=== PATIENT | male | born 1980 | race Caucasian/White ===

== ENCOUNTER 2017-05-24 21:30 | Observation (INO) | payer OTHER ==
[2017-05-24] MEDS ORDERED: NS 1,000 ML IV ONE (21:46)
--- NOTE | 2017-05-24 21:46 | EDPHY ---
H & P Stated Complaint: CP, high BP Time Seen by Provider: 05/24/17 21:35 HPI/ROS: HPI CHIEF COMPLAINT: Chest pain HISTORY OF PRESENT ILLNESS: Patient is a 36-year-old male, he has a history of what he describes to me is LVH, additionally hypertension, he presents emergency room with chest pain. He states he has had intermittent chest pain over the last 12-14 hours. Last every 15 min he describes sharp stabbing pain it radiates across his chest states sometimes goes down his left arm. It is not associated with exertion. 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 He states he was last hospitalized in [place] for chest pain. He states that he thinks he had a normal stress test at that time. He decided come the emergency room as he has been having chest pain sharp stabbing every 15 min in his chest. It comes and goes. He denies nausea vomiting. Denies shortness of breath. Denies pleuritic pain. Denies hemoptysis. Denies fever or recent illness. He does travel extensively states on planes. Never had a history of DVT or PE. Patient does report to me that he smokes tobacco daily half a pack, additionally marijuana, he did binge drink alcohol this weekend. He denies any cocaine or methamphetamine. Past Medical History: Hypertension, LVH Past Surgical History: Denies surgical history Social History: Denies daily use of drugs. Use tobacco daily, marijuana, occasional alcohol use. Denies other illicit drugs. Family History: Noncontributory ROS REVIEW OF SYSTEMS: A comprehensive 10 point review of systems is otherwise negative aside from elements mentioned in the history of present illness. Exam Constitutional appears well nontoxic, slightly anxious, triage nursing summary reviewed, vital signs reviewed, awake/alert. Eyes normal conjunctivae and sclera, EOMI, PERRLA. HENT normal inspection, atraumatic, moist mucus membranes, no epistaxis, neck supple/ no meningismus, no raccoon eyes. Respiratory clear to auscultation bilaterally, normal breath sounds, no respiratory distress, no wheezing. Cardiovascular rate normal, regular rhythm, no murmur, no edema, distal pulses normal. Gastrointestinal soft, non-tender, no rebound, no guarding, normal bowel sounds, no distension, no pulsatile mass. Genitourinary no CVA tenderness. Musculoskeletal no midline vertebral tenderness, full range of motion, no calf swelling, no tenderness of extremities, no meningismus, good pulses, neurovascularly intact. Skin pink, warm, & dry, no rash, skin atraumatic. Neurologic awake, alert and oriented x 3, AAOx3, moves all 4 extremities equally, motor intact, sensory intact, CN II-XII intact, normal cerebellar, normal vision, normal speech. Psychiatric normal mood/affect. Heme/Lymph/Immune no lymphadenopathy. Differential diagnosis includes but is not limited to: ACS, atypical chest pain , pneumothorax, pneumonia, pulmonary embolism, aortic dissection, congestive heart failure, tumor, musculoskeletal pain, esophageal pain, GERD, peptic ulcer disease, pancreatitis Medical Decision Making: Plan for this patient IV establishment full classroom monitor obtain EKG, troponin, rule out acute coronary syndrome, GI cocktail to see if this improves his pain, IV Pepcid, chest x-ray, D-dimer, and re-evaluate. Re-evaluation: EKG interpretation by me on record in [employer] system. Impression time of EKG 03/28/2046, sinus rhythm LVH present. No ST elevation no ST depression no T- wave abnormalities unremarkable nonischemic EKG. 2318: Re-evaluation patient still having intermittent chest pain. Full-dose aspirin has been given. He had no improvement GI cocktail or IV Pepcid. His workup so far in emergency room is unremarkable for acute coronary syndrome he has a nonischemic EKG. Chest x-ray unremarkable. Negative D-dimer negative troponin. 2327: Spoke with Dr. Cavanaugh, who agrees to admit this patient for chest pain. Repeat Ekg: Time of repeat EKG 2323, sinus rhythm rate of [address] elevation no ST depression. No significant T-wave abnormalities. No signs of ischemia. Source: Patient - Personal History Current Tetanus/Diphtheria Vaccine: Yes - Medical/Surgical History Hx Asthma: No Hx Chronic Respiratory Disease: No Hx Diabetes: No Hx Cardiac Disease: No Hx Renal Disease: No Hx Cirrhosis: No Hx Alcoholism: No Hx HIV/AIDS: No Hx Splenectomy or Spleen Trauma: No Other PMH: HTN, - Social History Smoking Status: Current every day smoker Constitutional: Initial Vital Signs Temperature (C) 36.4 C 05/24/17 21:32 Heart Rate 91 05/24/17 21:32 Respiratory Rate 18 05/24/17 21:32 Blood Pressure 133/93 H 05/24/17 21:32 O2 Sat (%) 94 05/24/17 21:32 O2 Delivery Mode Room Air Allergies/Adverse Reactions: No Known Allergies Allergy (Unverified 05/24/17 21:35) Home Medications: Medication Instructions Recorded LaMICtal 05/24/17 Lisinopril 05/24/17 Seroquel 05/24/17 Medical Decision Making - Diagnostics Imaging Results: Imaging Impressions Chest X-Ray 05/24/17 21:48 Impression: 1. Poor inspiration with mild compressive changes at the lung bases. - Data Points Laboratory Results: Laboratory Results 05/24/17 21:51 05/24/17 21:51 05/24/17 05/24/17 05/24/17 22:32 21:51 21:51 WBC RBC Hgb Hct MCV MCH MCHC RDW Plt Count MPV Neut % (Auto) Lymph % (Auto) [place] % (Auto) Eos % (Auto) Baso % (Auto) Nucleat RBC Rel Count Absolute Neuts (auto) Absolute Lymphs (auto) Absolute Monos (auto) Absolute Eos (auto) Absolute Basos (auto) Absolute Nucleated RBC Immature Gran % Immature Gran # PT 12.5 SEC SEC (12.0-15.0) INR 0.91 (0.83-1.16) APTT 26.9 SEC SEC (23.0-38.0) D-Dimer 0.37 ug/mLFEU ug/mLFEU (0.00-0.50) Sodium 143 mEq/L mEq/L (135-145) Potassium 4.4 mEq/L mEq/L (3.5-5.2) Chloride 107 mEq/L mEq/L (97-110) Carbon Dioxide 27 mEq/l mEq/l (22-31) Anion Gap 9 mEq/L mEq/L (8-16) BUN 16 mg/dL mg/dL (7-23) Creatinine 0.7 mg/dL mg/dL (0.7-1.3) Estimated GFR > 60 Glucose 98 mg/dL mg/dL (70-100) Calcium 9.3 mg/dL mg/dL (8.5-10.4) Magnesium 2.0 mg/dL mg/dL (1.6-2.3) Total Bilirubin 0.6 mg/dL mg/dL (0.1-1.4) Conjugated Bilirubin 0.4 mg/dL mg/dL (0.0-0.5) Unconjugated Bilirubin 0.2 mg/dL mg/dL (0.0-1.1) AST 29 IU/L IU/L (17-59) ALT 38 IU/L IU/L (21-72) Alkaline Phosphatase 72 IU/L IU/L (38-126) Creatine Kinase 296 IU/L H IU/L (0-224) CK-MB (CK-2) Fraction 5.81 ng/mL H ng/mL (0.00-3.19) CK-MB (CK-2) % 2.0 % % (0.0-4.0) Creatine Kinase Interp NEGATIVE (NEGATIVE) Troponin I < 0.012 ng/mL ng/mL (0.000-0.034) NT-Pro-B Natriuret Pep 42 pg/mL pg/mL (0-125) Total Protein 7.4 g/dL g/dL (6.3-8.2) Albumin 4.1 g/dL g/dL (3.5-5.0) Lipase 117 IU/L IU/L (23-300) Urine Opiates Screen NEGATIVE (NEGATIVE) Urine Barbiturates NEGATIVE (NEGATIVE) Ur Phencyclidine Scrn NEGATIVE (NEGATIVE) Ur Amphetamine Screen NEGATIVE (NEGATIVE) U Benzodiazepines Scrn NEGATIVE (NEGATIVE) Urine Cocaine Screen NEGATIVE (NEGATIVE) U Marijuana (THC) Screen NEGATIVE (NEGATIVE) 05/24/17 21:51 WBC 8.36 10^3/uL 10^3/uL (3.80-9.50) RBC 4.74 10^6/uL 10^6/uL (4.40-6.38) Hgb 14.4 g/dL g/dL (13.7-17.5) Hct 42.9 % % (40.0-51.0) MCV 90.5 fL fL (81.5-99.8) MCH 30.4 pg pg (27.9-34.1) MCHC 33.6 g/dL g/dL (32.4-36.7) RDW 12.8 % % (11.5-15.2) Plt Count 239 10^3/uL 10^3/uL (150-400) MPV 11.0 fL fL (8.7-11.7) Neut % (Auto) 60.5 % % (39.3-74.2) Lymph % (Auto) 27.4 % % (15.0-45.0) [place] % (Auto) 6.7 % % (4.5-13.0) Eos % (Auto) 4.1 % % (0.6-7.6) Baso % (Auto) 1.1 % % (0.3-1.7) Nucleat RBC Rel Count 0.0 % % (0.0-0.2) Absolute Neuts (auto) 5.06 10^3/uL 10^3/uL (1.70-6.50) Absolute Lymphs (auto) 2.29 10^3/uL 10^3/uL (1.00-3.00) Absolute Monos (auto) 0.56 10^3/uL 10^3/uL (0.30-0.80) Absolute Eos (auto) 0.34 10^3/uL 10^3/uL (0.03-0.40) Absolute Basos (auto) 0.09 10^3/uL 10^3/uL (0.02-0.10) Absolute Nucleated RBC 0.00 10^3/uL 10^3/uL (0-0.01) Immature Gran % 0.2 % % (0.0-1.1) Immature Gran # 0.02 10^3/uL 10^3/uL (0.00-0.10) PT INR APTT D-Dimer Sodium Potassium Chloride Carbon Dioxide Anion Gap BUN Creatinine Estimated GFR Glucose Calcium Magnesium Total Bilirubin Conjugated Bilirubin Unconjugated Bilirubin AST ALT Alkaline Phosphatase Creatine Kinase CK-MB (CK-2) Fraction CK-MB (CK-2) % Creatine Kinase Interp Troponin I NT-Pro-B Natriuret Pep Total Protein Albumin Lipase Urine Opiates Screen Urine Barbiturates Ur Phencyclidine Scrn Ur Amphetamine Screen U Benzodiazepines Scrn Urine Cocaine Screen U Marijuana (THC) Screen Medications Given: Discontinued Medications Al Hydroxide/Mg Hydroxide (Maalox Susp) 30 ml PO ONCE ONE Stop: 05/24/17 22:02 Last Admin: 05/24/17 22:12 Dose: 30 ml Aspirin (Aspirin) 325 mg PO EDNOW ONE Stop: 05/24/17 23:22 Last Admin: 05/24/17 23:22 Dose: 325 mg Aspirin Buffered (Aspirin Ec) 325 mg PO EDNOW ONE Stop: 05/24/17 23:19 Last Admin: 05/24/17 23:22 Dose: Not Given Famotidine (Pepcid) 20 mg IVP EDNOW ONE Stop: 05/24/17 22:01 Last Admin: 05/24/17 22:13 Dose: 20 mg Hyoscyamine Sulfate (Levsin, Hyomax-Sl) 0.25 mg PO ONCE ONE Stop: 05/24/17 22:02 Last Admin: 05/24/17 22:12 Dose: 0.25 mg Sodium Chloride (Ns) 1,000 mls @ 0 mls/hr IV EDNOW ONE; Wide Open PRN Reason: Protocol Stop: 05/24/17 21:47 Last Admin: 05/24/17 22:12 Dose: 1,000 mls Lidocaine (Lidocaine 2% Viscous) 15 ml PO ONCE ONE Stop: 05/24/17 22:02 Last Admin: 05/24/17 22:12 Dose: 15 ml Departure - Departure Disposition: [facility] Inpatient Acute Clinical Impression: Chest pain Qualifiers: Chest pain type: unspecified Qualified Code(s): R07.9 - Chest pain, unspecified Condition: Fair Referrals: NONE *PRIMARY CARE P,. [Primary Care Provider] - As per Instructions
--- NOTE | 2017-05-24 21:49 | CPEKG ---
Heart Rate: 81 RR Interval: 741 P-R Interval: 148 QRSD Interval: 98 QT Interval: 408 QTC Interval: 474 P [place]: 26 QRS Independence: 39 T Wave Independence: 12 EKG Severity - ABNORMAL ECG - EKG Impression: SINUS RHYTHM EKG Impression: LEFT VENTRICULAR HYPERTROPHY Electronically Signed By: Marilee Toussaint 24-May-2017 22:02:49
[2017-05-24 21:59] LABS: PLATELET COUNT 239 10^3/uL (150-400)
[2017-05-24] MEDS ORDERED: FAMOTIDINE 20 MG/2 ML SDV IVP ONE (22:00)
[2017-05-24] MEDS ORDERED: HYOSCYAMINE SULFATE 0.125 MG TAB PO ONE (22:01)
[2017-05-24] MEDS ORDERED: MAG HYDROX/AL HYDROX/SIMETH 30 ML UDCUP PO ONE (22:01)
[2017-05-24] MEDS ORDERED: LIDOCAINE 2% VISCOUS 15 ML UDCUP PO ONE (22:01)
[2017-05-24 22:09] LABS: INR 0.91 (0.83-1.16); PROTIME(PATIENT) 12.5 SEC (12.0-15.0)
[2017-05-24 22:12] LABS: CREATINE KINASE 296 IU/L (0-224)
[2017-05-24] MEDS ORDERED: ASPIRIN EC 325 MG TAB PO ONE (23:18)
[2017-05-24] MEDS ORDERED: ASPIRIN 325 MG TAB ONE (23:19)
[2017-05-24] MEDS ORDERED: ASPIRIN 325 MG TAB PO ONE (23:21)
--- NOTE | 2017-05-24 23:26 | CPEKG ---
Heart Rate: 82 RR Interval: 732 P-R Interval: 152 QRSD Interval: 92 QT Interval: 396 QTC Interval: 463 P [place]: 30 QRS [place]: 25 T Wave [place]: 17 EKG Severity - ABNORMAL ECG - EKG Impression: SINUS RHYTHM EKG Impression: CONSIDER LEFT VENTRICULAR HYPERTROPHY Electronically Signed By: Gurmeet Heart 25-May-2017 07:22:14
[2017-05-24] MEDS ORDERED: ACETAMINOPHEN 325 MG TAB PO PRN (23:28)
[2017-05-24] MEDS ORDERED: ONDANSETRON 4 MG/2 ML VIAL IVP PRN (23:28)
[2017-05-24] MEDS ORDERED: ONDANSETRON DISINTEGRATING 4 MG TAB PO PRN (23:28)
--- NOTE | 2017-05-24 23:57 | PDGENHP ---
History and Physical - Chief Complaint Chest pain - History of Present Illness 36 yo M w/ HTN and PTSD presents with chest pain. Patient states he has been having central chest pain several times a week for about a month. He describes severe, stabbing, central chest pain that is not related to exertion or rest. He takes ibuprofen 800 mg at home for this with minimal relief. He states that he had a stress test in [place] last year that was negative for similar symptoms. Of note, he smokes ~1 PPD and his sister had an IN at age 32. History Information - Allergies/Home Medication List Allergies/Adverse Reactions: No Known Allergies Allergy (Unverified 05/24/17 21:35) Home Medications: LaMICtal 05/24/17 [Last Taken Unknown] Lisinopril 05/24/17 [Last Taken Unknown] Seroquel 05/24/17 [Last Taken Unknown] I have personally reviewed and updated: family history, medical history - Past Medical History hypertension Additional medical history: PTSD - Surgical History Additional surgical history: RLE surgery after trauma - Family History Positive for: CAD (Sister had IN at age 32) - Social History Smoking Status: Current every day smoker Review of Systems Review of Systems: ROS: 10pt was reviewed & negative except for what was stated in HPI & below Physical Exam Physical Exam: Temp Pulse Resp BP Pulse Ox 36.8 C 84 16 145/91 H 95 05/24/17 23:23 05/24/17 23:23 05/24/17 23:23 05/24/17 23:23 05/24/17 23:23 Constitutional: appears nourished, uncomfortable Eyes: PERRL, EOMI Ears, Nose, Mouth, Throat: moist mucous membranes, no oral mucosal ulcers Cardiovascular: regular rate and rhythym, no murmur, rub, or gallop, other ( Sternum is mildly tender to palpation) Respiratory: no respiratory distress, clear to auscultation Gastrointestinal: normoactive bowel sounds, soft, non-tender abdomen Skin: warm, normal color Neurologic: AAOx3, CN II-XII Intact Psychiatric: interacting appropriately, not anxious Lab Data & Imaging Review 05/24/17 21:51 05/24/17 21:51 WBC 8.36 10^3/uL (3.80-9.50) 05/24/17 21:51 RBC 4.74 10^6/uL (4.40-6.38) 05/24/17 21:51 Hgb 14.4 g/dL (13.7-17.5) 05/24/17 21:51 Hct 42.9 % (40.0-51.0) 05/24/17 21:51 MCV 90.5 fL (81.5-99.8) 05/24/17 21:51 MCH 30.4 pg (27.9-34.1) 05/24/17 21:51 MCHC 33.6 g/dL (32.4-36.7) 05/24/17 21:51 RDW 12.8 % (11.5-15.2) 05/24/17 21:51 Plt Count 239 10^3/uL (150-400) 05/24/17 21:51 MPV 11.0 fL (8.7-11.7) 05/24/17 21:51 Neut % (Auto) 60.5 % (39.3-74.2) 05/24/17 21:51 Lymph % (Auto) 27.4 % (15.0-45.0) 05/24/17 21:51 [place] % (Auto) 6.7 % (4.5-13.0) 05/24/17 21:51 Eos % (Auto) 4.1 % (0.6-7.6) 05/24/17 21:51 Baso % (Auto) 1.1 % (0.3-1.7) 05/24/17 21:51 Nucleat RBC Rel Count 0.0 % (0.0-0.2) 05/24/17 21:51 Absolute Neuts (auto) 5.06 10^3/uL (1.70-6.50) 05/24/17 21:51 Absolute Lymphs (auto) 2.29 10^3/uL (1.00-3.00) 05/24/17 21:51 Absolute Monos (auto) 0.56 10^3/uL (0.30-0.80) 05/24/17 21:51 Absolute Eos (auto) 0.34 10^3/uL (0.03-0.40) 05/24/17 21:51 Absolute Basos (auto) 0.09 10^3/uL (0.02-0.10) 05/24/17 21:51 Absolute Nucleated RBC 0.00 10^3/uL (0-0.01) 05/24/17 21:51 Immature Gran % 0.2 % (0.0-1.1) 05/24/17 21:51 Immature Gran # 0.02 10^3/uL (0.00-0.10) 05/24/17 21:51 PT 12.5 SEC (12.0-15.0) 05/24/17 21:51 INR 0.91 (0.83-1.16) 05/24/17 21:51 APTT 26.9 SEC (23.0-38.0) 05/24/17 21:51 D-Dimer 0.37 ug/mLFEU (0.00-0.50) 05/24/17 21:51 Sodium 143 mEq/L (135-145) 05/24/17 21:51 Potassium 4.4 mEq/L (3.5-5.2) 05/24/17 21:51 Chloride 107 mEq/L (97-110) 05/24/17 21:51 Carbon Dioxide 27 mEq/l (22-31) 05/24/17 21:51 Anion Gap 9 mEq/L (8-16) 05/24/17 21:51 BUN 16 mg/dL (7-23) 05/24/17 21:51 Creatinine 0.7 mg/dL (0.7-1.3) 05/24/17 21:51 Estimated GFR > 60 05/24/17 21:51 Glucose 98 mg/dL (70-100) 05/24/17 21:51 Calcium 9.3 mg/dL (8.5-10.4) 05/24/17 21:51 Magnesium 2.0 mg/dL (1.6-2.3) 05/24/17 21:51 Total Bilirubin 0.6 mg/dL (0.1-1.4) 05/24/17 21:51 Conjugated Bilirubin 0.4 mg/dL (0.0-0.5) 05/24/17 21:51 Unconjugated Bilirubin 0.2 mg/dL (0.0-1.1) 05/24/17 21:51 AST 29 IU/L (17-59) 03/18/18 21:51 ALT 38 IU/L (21-72) 05/24/17 21:51 Alkaline Phosphatase 72 IU/L (38-126) 05/24/17 21:51 Creatine Kinase 296 IU/L (0-224) H 05/24/17 21:51 CK-MB (CK-2) Fraction 5.81 ng/mL (0.00-3.19) H 05/24/17 21:51 CK-MB (CK-2) % 2.0 % (0.0-4.0) 05/24/17 21:51 Creatine Kinase Interp NEGATIVE (NEGATIVE) 05/24/17 21:51 Troponin I < 0.012 ng/mL (0.000-0.034) 05/24/17 21:51 NT-Pro-B Natriuret Pep 42 pg/mL (0-125) 05/24/17 21:51 Total Protein 7.4 g/dL (6.3-8.2) 05/24/17 21:51 Albumin 4.1 g/dL (3.5-5.0) 05/24/17 21:51 Lipase 117 IU/L (23-300) 05/24/17 21:51 Urine Opiates Screen NEGATIVE (NEGATIVE) 05/24/17 22:32 Urine Barbiturates NEGATIVE (NEGATIVE) 05/24/17 22:32 Ur Phencyclidine Scrn NEGATIVE (NEGATIVE) 05/24/17 22:32 Ur Amphetamine Screen NEGATIVE (NEGATIVE) 05/24/17 22:32 U Benzodiazepines Scrn NEGATIVE (NEGATIVE) 05/24/17 22:32 Urine Cocaine Screen NEGATIVE (NEGATIVE) 05/24/17 22:32 U Marijuana (THC) Screen NEGATIVE (NEGATIVE) 05/24/17 22:32 Imaging Review: Imaging Impressions Chest X-Ray 05/24/17 21:48 Impression: 1. Poor inspiration with mild compressive changes at the lung bases. Visualized and Interpreted Chest x-ray results: Yes Chest X-Ray results: no infiltrate Visualized and Interpreted EKG results: Yes EKG Interpretation: Positive for: normal sinsus rhythm Assessment & Plan Assessment: 36 yo M w/ HTN and PTSD presents with chest pain. Plan: 1. Chest pain - Central, severe, present several times a week for 9 months. Patient is active smoker with 15 pack yr hx and his sister had an IN at age 32. He reports he had a stress test last year in [place] that was normal. ECG on admission without ischemia, troponin and D-dimer negative. His CXR is unremarkable. - Admit to PCU for observation - Monitor on telemetry, trend cardiac enzymes - Will further evaluate chest wall with CT Chest - Nuclear stress test ordered for the morning (cannot walk on treadmill due to RLE injury) 2. HTN - On lisinopril as outpatient 3. PTSD - On Seroquel and Lamictal. Diet - NPO @ MA Code - Full Ppx - Low risk Dispo - Admit to PCU under observation status
[2017-05-25] MEDS ORDERED: IOPAMIDOL (ISOVUE 370) 100 ML BTL IV ONE (00:42)
[2017-05-25 03:59] LABS: PLATELET COUNT 219 10^3/uL (150-400)
[2017-05-25] MEDS ORDERED: QUEtiapine FUMARATE 50 MG TAB PO SCH (09:00)
[2017-05-25] MEDS ORDERED: NICOTINE 7 MG/24 HR PATCH TD SCH (09:00)
[2017-05-25] MEDS ORDERED: REGADENOSON 0.4 MG/5 ML SYR IVP ONE (09:49)
[2017-05-25] MEDS ORDERED: NICOTINE 21 MG/24 HR PATCH TD SCH (12:15)
[2017-05-25] MEDS: lamoTRIgine 25 MG TAB PO SCH ×2 (12:46→18:18)
--- NOTE | 2017-05-25 13:37 | ASMTCMCOM ---
CM Note CM Note Notes: 05/25/2017 Case Management Note Met pt during rounds this morning. Pt was admitted for chest pain. There are no case management d/c needs identified d/t pt age, employment status and activity levels prior to admission. Pt lives in [place] and is staying in a hotel here in [place]. Case Management d/c poc: anticipating independent with follow up as directed. Case Management available if d/c needs change. Date Signed: 05/25/2017 01:37 PM Electronically Signed By:Anabela Schultz RN
--- NOTE | 2017-05-25 14:27 | CPR ---
[f rep st] NONINVASIVE CARDIAC PROCEDURE REPORT DATE OF PROCEDURE: 05/25/2017 PROCEDURE: Lexiscan nuclear stress test. INDICATION: The patient is a 36-year-old male who presented to the hospital complaining of sharp solange st pain which lasted for approximately 10 minutes. He has a history of hypertension, ongoing tobacco use and family history of premature coronary artery disease. He states his sister had a myocardial infarction in her late 30s. PROCEDURE IN DETAIL: The patient was unable to walk on a treadmill secondary to knee pain. He had a Lexiscan infusion. His resting EKG revealed normal sinus rhythm with a heart rate of 60 beats per m inute and voltage consistent with left ventricular hypertrophy. Consent was obtained prior to the pr ocedure. The patient was infused with Lexiscan and complained of nausea and flushing. He remained i n normal sinus rhythm but his heart rate did increase from the 60s into the 90s. His blood pressure at rest was 150/90 and remained stable throughout study. The patient was given caffeine in the recov adela phase with an improvement in his symptoms. PLAN: Await nuclear images. /[id number]/MODL
--- NOTE | 2017-05-25 14:52 | ECHO ---
[email or web address] [address] [address] Main: [phone] Fax: Transthoracic Echocardiogram Name: JAYA GAMEZ MR#: [id number] Study Date: 05/25/2017 Study Time: 01:36 PM Date of : 1980 Age: 36 year(s) Height: 182.9 cm (72 in.) Weight: 112.95 kg (249 lb.) BSA: 2.34 m2 Gender: Male Examination: Echo Indication: Eval new cardiomyopathy 145 Image Quality: Contrast: Requested by: Darrell Salcedo BP: 145 mmHg/92 mmHg Heart Rate: Rhythm: Indication: Eval new cardiomyopathy Procedure Staff Regional Liaison: Jacki Wills RDCS Reading Physician: Rasheed Ratliff MD Requesting Provider: Conclusions: Normal size left ventricle. No LV hypertrophy. Normal global systolic LV function. The ejection fraction is estimated to be 60-65 %. Normal size right ventricle. Normal RV function. The left atrium is mildly dilated. The right atrium is normal in size. The IVC is normal sized. Measurements: Chambers Valvular Assessment AV/MV Valvular Assessment TV/PV Normal Normal Normal Name Value Range Name Value Range Name Value Range Ao Sylvia (MM): 3.6 cm (2.2 cm-3.7 AV meanP mmHg ( - ) cm) MV E Vmax: 0.71 m/s ( - ) IVSd (2D): 1.0 cm (0.6 cm-1.1 MV A Vmax: 0.49 m/s ( - ) cm) MV E/A: 1.45 ( - ) LVDd (2D): 5.1 cm (4.2 cm-5.9 cm) LVDs (2D): 3.8 cm (2.1 cm-4 cm) LVPWd (2D): 0.7 cm (0.6 cm-1 cm) LVEF (MOD4): 63 % (>=55 %) EF Range: 60-65 % Continued Measurements: Chambers Valvular Assessment AV/MV Patient: JAYA GAMEZ Study Date: 05/25/2017 Page 1 of 2 01:36 PM Name Value Name Value LADs: 4.6 cm MV E/E' Septal: 9.10 LADs Lon.1 cm MV E/E' Lateral: 8.90 LA Area: 26.5 cm2 TAPSE: 2.5 cm Additional Vessels Name Value Ao Ascendin.3 cm Findings: Left Ventricle: Normal size left ventricle. No LV hypertrophy. Normal global systolic LV function. The ejection fraction is estimated to be 60-65 %. No regional wall motion abnormality. Right Ventricle: Normal size right ventricle. Normal RV function. Left Atrium: The left atrium is mildly dilated. Right Atrium: The right atrium is normal in size. Mitral Valve: The mitral valve is normal in appearance and function. Mild mitral valve regurgitation is present. Aortic Valve: The aortic valve is normal in appearance and function. Tricuspid Valve: The tricuspid valve is normal in appearance and function. Trivial tricuspid valve regurgitation. Pulmonic Valve: The pulmonic valve is normal in appearance and function. Aorta: The aorta is normal. IVC: The IVC is normal sized. Pericardium: No pericardial effusion. (No Signature Object) Patient: JAYA GAMEZ Study Date: 05/25/2017 Page 2 of 2 01:36 PM [id number]
[2017-05-25] MEDS ORDERED: CALCIUM CARBONATE 500 MG CHEWABLE TAB PO PRN (15:01)
[2017-05-25] MEDS ORDERED: PANTOPRAZOLE SODIUM 40 MG TAB PO SCH (15:15)
[2017-05-25 15:41] VITALS: BP 152/99; PULSE 88; RESP 13; TEMP 98; O2SAT 94
--- NOTE | 2017-05-25 16:48 | ASMTLACE ---
LACE Length of stay for Answers: Less than 1 day current admission Acuity / Level of Answers: No Care: Did the patient have an inpatient admission? Comorbidities - select Answers: Other Notes: HTN all that apply Social determinants Answers: History of substance abuse (ETOH, street drugs, prescription drugs, etc.) History of trauma (PTSD, child abuse, domestic violence, etc.) Score: 7 Date Signed: 05/25/2017 04:47 PM Electronically Signed By:Anabela Schultz RN
--- NOTE | 2017-05-25 17:46 | PDDCSUM ---
Discharge Summary Discharge Summary: DISCHARGE SUMMARY FOLLOW-UP ITEMS: Reassess atypical chest pain as an outpatient DATE OF ADMISSION: 05/24/2017 DATE OF DISCHARGE: 05/25/2017 DISCHARGE DIAGNOSES: 1. Acute chest pain 2. Suspected esophagitis 3. Acute atelectasis CONSULTATIONS: None PROCEDURES / IMAGING: Nuclear medicine stress test demonstrating no inducible ischemia, possibly reduced ejection fraction Echocardiogram demonstrated normal ejection fraction, no focal wall motion abnormalities CHIEF COMPLAINT: Acute chest pain SUBJECTIVE: Patient continues to experience left-sided chest discomfort PHYSICAL EXAM ON DISCHARGE: Systolic blood pressure is 130, heart rate 70, afebrile overnight, satting well on room air, alert awake oriented x3, lungs are clear to auscultation bilaterally, heart rhythm is regular with no murmurs rubs or gallops, chest tenderness over the left anterior pectoralis muscle, full range of motion of the left shoulder without any inducible pain, abdomen is soft, mildly tender to moderate palpation, there is some sutures exposed in the scabs on the right lower extremity, without any surrounding erythema LABS ON DISCHARGE: D-dimer negative, troponin negative x2, liver panel unremarkable, tox screen negative, white blood cell count 6700, hemoglobin 13.8 HOSPITAL COURSE BY PROBLEM: The patient presented with acute chest pain and was ruled out for acute coronary syndrome with negative troponin x2, no ischemic changes on EKG, ruled out for obstructive coronary disease with a normal nuclear medicine stress test demonstrating no inducible ischemia. He was ruled out for pulmonary embolism with a negative D-dimer, ruled out for pulmonary infection with a normal chest CT. His nuclear medicine stress test miscalculated his ejection fraction, and he had a normal ejection fraction on echocardiogram. This was confirmed with our appeals officer. The etiology of the patient's chest discomfort is somewhat unclear, but I suspect the patient may have some nonsteroidal anti- inflammatory medication induced esophagitis, given that he has been taking NSAIDs fairly consistently for quite some time. Consequently, I recommended that he initiate a proton pump inhibitor and acute daily for the next month, utilizing as needed H2 marah and times for any ongoing chest discomfort. I recommended that he utilize Tylenol with his ibuprofen for pain control, primarily of his right lower extremity in which he continues to experience some discomfort status post a traumatic injury. The patient has some degree of atelectasis secondary to immobility since his presentation, and I recommended increasing his activity level. The patient has some sutures which have inappropriately remained in place since a traumatic injury 8 months ago, and we attempted to remove them with tweezers prior to discharge. For any sutures which were unable to be removed, we recommend that he follow up with his primary care provider and have them reassessed. DISCHARGE MEDICATIONS: Please see official discharge medication reconciliation sheet in chart , continue home medications with the addition of pantoprazole 40 mg daily, ranitidine 150 mg twice daily as needed, Tums as needed, Tylenol as needed. DISCHARGE INSTRUCTIONS: Please follow up with primary care provider upon returning to [place].
== END 2017-05-25 19:48 | disposition home or self-care (01) ==
LOC: F2W 05-25 01:13
PROVIDERS: ADMIT Student in an Organized Health Care Education/Training Program; ATTEND Internal Medicine
DX: R07.9 Chest pain, unspecified (principal); J98.11 Atelectasis; E86.9 Volume depletion, unspecified; I51.7 Cardiomegaly; I10 Essential (primary) hypertension; F17.210 Nicotine dependence, cigarettes, uncomplicated; F43.10 Post-traumatic stress disorder, unspecified; Z82.49 Family history of ischemic heart disease and other diseases of the circulatory system
CPT/HCPCS: 71045; 71260; 78452; 93005; 93017; 93306; A9500; G0378; 80305; 96374; J2270; J2785; Q9967

== ENCOUNTER 2017-05-28 07:36 | Emergency (ER) | payer OTHER ==
--- NOTE | 2017-05-28 07:59 | CPEKG ---
Heart Rate: 92 RR Interval: 652 P-R Interval: 152 QRSD Interval: 100 QT Interval: 372 QTC Interval: 461 P [place]: 27 QRS [place]: 33 T Wave [place]: 14 EKG Severity - NORMAL ECG - EKG Impression: SINUS RHYTHM Electronically Signed By: Anival Fall 28-May-2017 08:30:42
--- NOTE | 2017-05-28 08:50 | EDPHY ---
H & P Smoking Status: Current every day smoker Time Seen by Provider: 05/28/17 08:38 HPI/ROS: CHIEF COMPLAINT: Chest pain HISTORY OF PRESENT ILLNESS: Patient had hospital admission 05/24/17 for chest pain and had negative stress test as well as negative D-dimer. Normal chest CT. He was discharged with PPI for probable esophagitis. At 1:45 a.m. Today he awakened with sharp shooting chest pains in his left side of his chest which are identical to when he was hospitalized for this past weekend. He also said his PTSD is worse and tells me that his other reason he is here is that he feels that his feelings of wanting to harm himself are greater. He denies actual suicidal ideation or plan. Chest pain is not associated with diaphoresis or cough or fever or leg swelling or leg pain or hemoptysis. Symptoms mild. REVIEW OF SYSTEMS: Eye: no change in vision ENT: no sore throat Cardiac: HPI Pulmonary: no cough or SOB Abdomen: no vomiting, diarrhea, abdominal pain Musculoskeletal: no back pain Skin: no rash Neuro: no headache Constitutional: no fever : no urinary symptoms A comprehensive 10 point review of systems is otherwise negative aside from elements mentioned in the history of present illness. PAST MEDICAL HISTORY: PTSD, hypertension, Achilles repair Tobacco smoker and marijuana edibles Social history: Denies methamphetamine or alcohol today. Former [employer] General Appearance: Alert and conversant, cooperative. Eyes: No scleral icterus. ENT, Mouth: Normal mucous membranes. Respiratory: Normal respiratory effort, breath sounds equal, lungs are clear to auscultation. No rales or wheezing or rhonchi Cardiovascular: Regular rate and rhythm. Gastrointestinal: Abdomen is soft and non tender. Neurological: Alert, face symmetric, normal motor and sensory in extremities. Skin: Warm and dry, no rashes. Musculoskeletal: No peripheral edema. Psychiatric: Patient states"I feel like I am going to harm someone or myself." Intermittently tearful. Not hallucinating. Emergency Department course/MDM: 12-lead EKG interpreted by me; official reading is in trace master. My interpretation is sinus rhythm rate 92 with no ischemic changes, normal. I think acute coronary syndrome or pulmonary embolism would be unlikely. He does appear to require mental health evaluation. 1200: Placed on a mental health hold by myself for suicidal ideation, will not discuss his plan with me. 1430: Signed out to Dr. Pacheco with psychiatric evaluation pending. (Anival Fall) Constitutional: Initial Vital Signs Temperature (C) 36.5 C 05/28/17 07:43 Heart Rate 99 05/28/17 07:43 Respiratory Rate 20 05/28/17 07:43 Blood Pressure 149/98 H 05/28/17 07:43 O2 Sat (%) 95 05/28/17 07:43 O2 Delivery Mode Room Air Allergies/Adverse Reactions: No Known Allergies Allergy (Verified 05/28/17 07:42) Home Medications: Medication Instructions Recorded Lisinopril 1 each PO DAILY PRN 05/24/17 QUEtiapine FUMARATE [Seroquel 50 50 mg PO BID 05/24/17 mg (*)] lamoTRIgine [LaMICtal] 25 mg PO BID 05/24/17 Acetaminophen [Tylenol 325mg (*)] 650 mg PO Q4HRS PRN tab 05/25/17 Calcium Carbonate [Tums 500MG (*)] 500 mg PO TID PRN tab.chew 05/25/17 Nicotine [Nicotine Patch] 1 each TD DAILY 05/25/17 Pantoprazole Sodium [Protonix 40mg 40 mg PO DAILY #30 tab 05/25/17 (*)] Ranitidine HCl 150 mg PO BID PRN #60 tablet 05/25/17 Medical Decision Making - Diagnostics EKG Interpretation: 12-lead EKG interpreted by me; official reading is in trace master. My interpretation is sinus rhythm, normal intervals, no ischemic changes. (Anival Fall) ED Course/Re-evaluation: 0338AM: Patient sleeping. Pending Eval. +meth, cocaine. Here with Intially CP, no with SI. 0700AM: signed over to Dr. Patel 7am shift-change. ([facility]) Differential Diagnosis: Differential diagnosis considered for chest pain including but not limited to myocardial ischemia, aortic dissection, pericarditis, pulmonary embolus, chest wall pain, pleural inflammation and pulmonary infectious causes. (Anival Fall) Other Provider: 2027: Patient is awaiting evaluation due to methamphetamine use. Plan to evaluate at 22:00 tonight. (Jn Pacheco) I assumed care of the patient at 7 o'clock in the morning The patient's mental health hold was vacated by Dr. Dilan Duron. The patient is felt to possibly be malingering. He does not meet criteria for inpatient psychiatric hospitalization per the psychiatric evaluation team. (Brad Patel) - Data Points Laboratory Results: Laboratory Results 05/28/17 09:03 05/28/17 09:03 Medications Given: Discontinued Medications Lorazepam (Ativan) 1 mg PO EDNOW ONE Stop: 05/28/17 09:44 Last Admin: 05/28/17 09:52 Dose: 1 mg Olanzapine (Olanzapine) 10 mg PO ONCE ONE Stop: 05/29/17 01:42 Last Admin: 05/29/17 01:51 Dose: 10 mg Departure - Departure Disposition: Home, Routine, Self-Care Clinical Impression: PTSD (post-traumatic stress disorder), Methamphetamine abuse Chest pain Qualifiers: Chest pain type: unspecified Qualified Code(s): R07.9 - Chest pain, unspecified Condition: Good Instructions: Chest Pain (ED), Post Traumatic Stress Disorder (ED), Methamphetamine Abuse (ED) Referrals: NONE *PRIMARY CARE P,. [Primary Care Provider] - As per Instructions
[2017-05-28 09:20] LABS: PLATELET COUNT 261 10^3/uL (150-400)
[2017-05-28] MEDS ORDERED: LORazepam 1 MG TAB PO ONE (09:43)
[2017-05-28 15:02] VITALS: RESP 16
[2017-05-29] MEDS ORDERED: OLANZapine DISINTEGR 10 MG TAB ONE (01:41)
[2017-05-29] MEDS ORDERED: OLANZapine 5 MG TAB PO ONE (01:41)
[2017-05-29 09:00] VITALS: TEMP 97.3
[2017-05-29 09:37] VITALS: BP 141/81; PULSE 74; O2SAT 94
== END 2017-05-29 09:36 | disposition home or self-care (01) ==
PROC: GZ11ZZZ Psychological Tests, Personality and Behavioral (ICD-10-PCS; principal; 2017-05-28)
DX: R07.9 Chest pain, unspecified (principal); F43.10 Post-traumatic stress disorder, unspecified; F15.10 Other stimulant abuse, uncomplicated; I10 Essential (primary) hypertension; F17.200 Nicotine dependence, unspecified, uncomplicated
CPT/HCPCS: 80305; G0480